=== PATIENT | male | born 1940 | race Caucasian/White ===

== ENCOUNTER → 2016-08-18 | Outpatient (CLI) | payer MEDICARE | LOC: GMAJ 10:34 | PROVIDERS: ATTEND Family Medicine | DX: E03.8 Other specified hypothyroidism (principal); Z12.5 Encounter for screening for malignant neoplasm of prostate | CPT/HCPCS: 84443; G0103 ==

== ENCOUNTER → 2017-04-12 | Outpatient (CLI) | payer MEDICARE | END | disposition home or self-care (01) | LOC: GMAJ 10:42 | PROVIDERS: ATTEND Family Medicine | DX: E03.8 Other specified hypothyroidism (principal) ==

== ENCOUNTER → 2017-07-27 | Outpatient (CLI) | payer MEDICARE | LOC: GMAJ 10:20 | PROVIDERS: ATTEND Family Medicine | DX: E03.8 Other specified hypothyroidism (principal) ==

== ENCOUNTER → 2017-09-12 | Outpatient (CLI) | payer MEDICARE ==
--- NOTE | 2017-09-13 10:06 | US ---
EXAM DESCRIPTION: Carotid Duplex CLINICAL HISTORY: [facility] COMPARISON: None Available. TECHNIQUE: Carotid Doppler ultrasound FINDINGS: Right Submitted images show calcified plaque in the upper right CCA and at the right carotid bulb with moderate calcified plaque in the proximal right ICA. Flow velocity in the proximal right ICA is mildly elevated at 20 24 cm/s suggesting a 40-59% stenosis. Qualitatively, plaque appears to narrow the vessel approximately 50% of the diameter. Transverse images show 58% area narrowing of the right carotid bulb and 46% area narrowing of the proximal right ICA above the bulb. The following flow velocities were obtained: Common carotid artery peak systolic flow velocity measures 65 centimeters per second. Internal carotid artery peak systolic flow velocity measures 124 centimeters per second. External carotid artery peak systolic flow velocity measures 100 centimeters per second. Flow in the right vertebral artery is antegrade. The right internal carotid to common carotid peak systolic flow velocity ratio equals 1.9 which is at the upper limits of normal. Left Submitted images show calcified plaque in the upper left CCA and in the left carotid bulb. Mild calcified plaque in the proximal left internal carotid artery. Axial images show 61% area narrowing of the left carotid bulb and 21% area narrowing of the left ICA above the bulb. The following flow velocities were obtained: Common carotid artery peak systolic flow velocity measures 79 centimeters per second. Internal carotid artery peak systolic flow velocity measures 108 centimeters per second. External carotid artery peak systolic flow velocity measures 114 centimeters per second. Flow in the left vertebral artery is antegrade. The left internal carotid to common carotid peak systolic flow velocity ratio of 1.4 is normal. IMPRESSION: Arteriosclerotic plaque at the bilateral carotid bifurcations. Elevated flow velocity in the right ICA suggesting 40-59% stenosis. Antegrade flow in the bilateral vertebral arteries. Electronically signed by: Shade Urena MD 09/13/2017 10:05 AM CDT
== END ==
LOC: US 14:59
PROVIDERS: ATTEND Family Medicine
DX: I65.23 Occlusion and stenosis of bilateral carotid arteries (principal)

== ENCOUNTER → 2018-03-26 | Outpatient (CLI) | payer MEDICARE | LOC: GMAJ 11:09 | PROVIDERS: ATTEND Family Medicine | DX: E03.8 Other specified hypothyroidism (principal) ==

== ENCOUNTER → 2018-12-03 | Outpatient (CLI) | payer MEDICARE | LOC: GMAJ 10:50 | PROVIDERS: ATTEND Family Medicine | DX: Z12.5 Encounter for screening for malignant neoplasm of prostate (principal); E03.8 Other specified hypothyroidism; I10 Essential (primary) hypertension; E78.2 Mixed hyperlipidemia; E11.9 Type 2 diabetes mellitus without complications | CPT/HCPCS: 84443; G0103 ==

== ENCOUNTER → 2019-04-19 | Outpatient (CLI) | payer MEDICARE | LOC: GMAJ 11:40 | PROVIDERS: ATTEND Family Medicine | DX: R97.20 Elevated prostate specific antigen [PSA] (principal); E03.9 Hypothyroidism, unspecified; I10 Essential (primary) hypertension; E78.2 Mixed hyperlipidemia; E11.9 Type 2 diabetes mellitus without complications ==

== ENCOUNTER → 2019-08-23 | Outpatient (CLI) | payer MEDICARE | LOC: GMAJ 11:28 | PROVIDERS: ATTEND Family Medicine | DX: N40.1 Benign prostatic hyperplasia with lower urinary tract symptoms (principal); E03.9 Hypothyroidism, unspecified; I50.22 Chronic systolic (congestive) heart failure; I10 Essential (primary) hypertension; E11.9 Type 2 diabetes mellitus without complications; E78.00 Pure hypercholesterolemia, unspecified ==

== ENCOUNTER → 2020-04-28 | Outpatient (CLI) | payer MEDICARE | LOC: LAB.O 12:18 | PROVIDERS: ATTEND Internal Medicine Interventional Cardiology | DX: I48.91 Unspecified atrial fibrillation (principal) ==